=== PATIENT | female | born 1950 | race Caucasian/White ===

== ENCOUNTER 2022-10-18 17:59 | Inpatient (IN) | payer MEDICARE, BC ==
[~2022-10-18] VITALS: Ht 165.1 cm; Wt 98.9 kg
--- NOTE | 2022-10-18 19:54 | NUR ---
PT TO ROOM 4
[2022-10-18] MEDS ORDERED: PANTOPRAZOLE 40 MG VIAL ONE (20:18)
[2022-10-18] MEDS ORDERED: PANTOPRAZOLE 40 MG VIAL IV ONE (20:30)
--- NOTE | 2022-10-18 20:39 | NUR ---
F/C 16 URINE COLLECTED AND SENT TO LAB. LARGE BM NOTED PT KEPT CLEAN AND DRY
--- NOTE | 2022-10-18 20:40 | NUR ---
COVID ANTIGEN SWAB COLLECTED AND SENT TO LAB
[2022-10-18 20:45] LABS: BASOPHILS # (AUTO) 0.1 K/uL (0.0-0.2); BASOPHILS % (AUTO) 0.5 % (0.0-2.0); EOSINOPHILS % (AUTO) 1.6 % (0.0-6.0); HEMATOCRIT 21 % (33-45); HEMOGLOBIN 7.1 g/dL (11.5-14.8); LYMPHOCYTES # (AUTO) 1.1 K/uL (0.8-4.8); LYMPHOCYTES % (AUTO) 10.8 % (20.0-44.0); MEAN CORPUSCULAR HGB CONC 34 g/dl (31.0-36.0); MEAN CORPUSCULAR VOLUME 104 fL (82-100); MONOCYTES # (AUTO) 0.8 K/uL (0.1-1.30); MONOCYTES % (AUTO) 7.9 % (2.0-12.0); NEUTROPHILS # (AUTO) 7.8 K/uL (1.8-8.9); NEUTROPHILS % (AUTO) 79.2 % (43.0-81.0); PLATELET COUNT (AUTO) 186 K/uL (150-450); RED BLOOD CELL COUNT(AUTO) 2.02 MIL/uL (4.0-5.2); WHITE BLOOD COUNT (AUTO) 9.8 K/uL (4.3-11.0)
--- NOTE | 2022-10-18 20:48 | NUR ---
LAC #20G S/L BLOOD COLLECTED AND SENT TO LAB
[2022-10-18 21:01] LABS: SERUM AMMONIA 110 umol/L (11-32)
[2022-10-18 21:06] LABS: ACETAMINOPHEN < 10 ug/ml (10-30); ALANINE AMINOTRANSFERASE 43 U/L (12-78); ALBUMIN 2.6 g/dL (3.4-5.0); ALKALINE PHOSPHATASE 110 U/L (46-116); ASPARTATE AMINOTRANSFERASE 64 U/L (15-37); BILIRUBIN,DIRECT 0.6 mg/dL (0.0-0.2); BILIRUBIN,TOTAL 1.1 mg/dL (0.2-1.0); CARBON DIOXIDE 21 mmol/L (21-32); CHLORIDE 111 mmol/L (98-107); CREATININE 2.6 mg/dL (0.6-1.3); GLUCOSE 137 mg/dL (74-106); LIPASE 88 U/L (73-393); POTASSIUM 3.2 mmol/L (3.5-5.1); SODIUM SERUM 144 mmol/L (136-145); TOTAL PROTEIN, SERUM 5.6 g/dL (6.4-8.2); UREA NITROGEN, BLOOD 57 mg/dL (7-18)
[2022-10-18 21:08] LABS: ALCOHOL, BLOOD < 3 mg/dL (0-0)
[2022-10-18 21:13] LABS: THYROID STIMULATING HORMONE 24.932 uIU/mL (0.358-3.74)
[2022-10-18] MEDS ORDERED: IV NS 0.9% 1,000 ML BAG IV ONE (21:30)
[2022-10-18] MEDS ORDERED: LEVOTHYROXINE INJ 100 MCG VIAL IV SCH (21:30)
[2022-10-18] MEDS ORDERED: IV PREMIX D5 1/2NS + KCL 1,000 ML IV ONE ×2 (21:30→22:09)
[2022-10-18 21:41] LABS: BILIRUBIN,URINE 1+ (NEGATIVE); COLOR,URINE YELLOW (YELLOW); LEUKOCYTE ESTERASE ,URINE 3+ (NEGATIVE); NITRITE, URINE NEGATIVE (NEGATIVE); PROTEIN,URINE TRACE mg/dl (NEGATIVE); UGLUCOSE NEGATIVE (NEGATIVE)
[2022-10-18 22:15] LABS: BACTERIA,URINE Many /HPF (None Seen); SQUAMOUS EPITHELIAL CELL,UR Few /HPF (None Seen)
[2022-10-18 22:16] LABS: WBC,URINE 21-50 /HPF (0-3)
[2022-10-18] MEDS ORDERED: CEFTRIAXONE 1GM BAG (ER ONLY) 1 GM/50 ML PIGGYBACK IV ONE (23:00)
[2022-10-18] MEDS ORDERED: CEFTRIAXONE 1GM BAG (ER ONLY) 50 ML IV ONE (23:03)
[2022-10-18 23:32] LABS: ABG BASE EXCESS -4.1 mmol/L; ABG PH 7.528 (7.350-7.450); ABG PO2 105.4 mmHg (75.0-100.0); COHb 0.2 % (0.5-1.5); MetHb 0.2 % (0.0-1.5); O2Hb 96.8 % (94.0-97.0); SITE, ABG Left Radial; VENT MODE, BG ROOM AIR
[2022-10-19] MEDS ORDERED: DEXTROSE 50%-WATER 50 ML DISP.SYRIN IV PRN
[2022-10-19] MEDS ORDERED: MAG HYDROX/AL HYDROX/SIMETH 30 ML UDC PO PRN
[2022-10-19] MEDS ORDERED: ONDANSETRON HCL/PF 4 MG/2 ML VIAL IVP PRN
[2022-10-19] MEDS ORDERED: ACETAMINOPHEN 325 MG TABLET PO PRN
[2022-10-19] MEDS ORDERED: Z GUARD REMEDY 4 OZ OINT TP PRN
[2022-10-19] MEDS ORDERED: MAGNESIUM HYDROXIDE 30 ML UDC PO PRN
[2022-10-19 00:30] VITALS: BP 151/40
--- NOTE | 2022-10-19 00:30 | NUR ---
NOC RN NOTE PATIENT HAS NO NEXT OF KIN. UNABLE TO FIND OUT WHERE PATIENT CAME FROM. EVEN CALLED THE PHONE #IN THE CHART BUT IT WAS GOING THROUGH PATIENT'S OWN VOICEMAIL AND PATIENT IS UNABLE TO ANSWER QUESTIONS. PUT FULL CODE FOR NOW.
--- NOTE | 2022-10-19 01:29 | NUR ---
PT TRANSFERRED TO [facility] VIA ACLS PROTOCOL WITH THE DX OF ACUTE METABOLIC ENCEPHALOPATHY.
--- NOTE | 2022-10-19 01:40 | NUR ---
noc rn note- non-admin Patient, upon admission to the unit having Black tarry stool and multiple bruises. Talked to Dr. Darby on the phone and per doctor hold Lovenox for now. no other new order. will monitor.
--- NOTE | 2022-10-19 02:10 | NUR ---
ADMISSION NOTE PATIENT BROUGHT IN UNIT AT AROUND 0020, ACCOMPANIED BY 2 ER PERSONNEL VIA Integen[employer]. PATIENT NON-VERBAL AND UNABLE TO COMPREHEND. NO S/S OF APPARENT DISTRESS IN ROOM AIR. PATIENT NOT EXHIBITING PAIN VIA FLACC. READING SR WITH 85 BPM. PATIENT HAS MULTIPLE SKIN TEARS AND BRUISES. NEW ID BAND ON PATIENT. LUNA CATHETER WAS PRESENT UPON ADMISSION DRAINING WELL TO GRAVITY. PATIENT NOTED TO HAVE BLACK TARRY STOOL-- MD NOTIFIED. BELONGINGS CHECKED-- PATIENT HAS LEFT EAR HEARING AIR. SAFETY PUT IN PLACE. UNABLE TO OBTAIN HISTORY FROM PATIENT. NO NEXT OF KIN PROVIDED AND THE # PROVIDED ON CHART IS PATIENT'S OWN PHONE #. TRIED CALLING, NO ANSWER. RIGHT NOW PATIENT IS ON IV PREMIX D5 1/2 NS WITH KCL 20MEQ RUNNING 200MLS/HR. ALL NEEDS ATTENDED. ADMISSION V/S TAKEN AND CHARTED. WILL CONTINUE WITH PLAN OF CARE FOR PATIENT AND FOLLOW THROUGH DOCTOR'S ORDERS.
--- NOTE | 2022-10-19 04:01 | NUR ---
noc rn note Fecal occult blood obtained awaiting lab pick-up.
[2022-10-19] MEDS: IV 1/2NS 1000 ML 1,000 ML IV PRN (04:51)
[2022-10-19] MEDS: BLOOD SUGAR DIAGNOSTIC 1 EACH STRIP IN SCH ×4 (07:03→21:20)
[2022-10-19] MEDS: INSULIN REGULAR, HUMAN 100 UNIT/ML 3 ML VIAL SQ PRN ×2 (07:04→14:12)
[2022-10-19 07:07] LABS: OCCULT BLOOD STOOL POSITIVE (NEGATIVE)
[2022-10-19 07:12] LABS: BASOPHILS # (AUTO) 0.1 K/uL (0.0-0.2); BASOPHILS % (AUTO) 0.4 % (0.0-2.0); EOSINOPHILS % (AUTO) 1.1 % (0.0-6.0); LYMPHOCYTES # (AUTO) 1.3 K/uL (0.8-4.8); LYMPHOCYTES % (AUTO) 10.7 % (20.0-44.0); MEAN CORPUSCULAR HGB CONC 32 g/dl (31.0-36.0); MEAN CORPUSCULAR VOLUME 105 fL (82-100); MONOCYTES # (AUTO) 1.3 K/uL (0.1-1.30); MONOCYTES % (AUTO) 11.2 % (2.0-12.0); NEUTROPHILS % (AUTO) 76.6 % (43.0-81.0); PLATELET COUNT (AUTO) 196 K/uL (150-450); WHITE BLOOD COUNT (AUTO) 11.8 K/uL (4.3-11.0)
[2022-10-19 07:22] LABS: ALANINE AMINOTRANSFERASE 39 U/L (12-78); ALBUMIN 2.5 g/dL (3.4-5.0); ALKALINE PHOSPHATASE 109 U/L (46-116); ASPARTATE AMINOTRANSFERASE 62 U/L (15-37); BILIRUBIN,TOTAL 0.9 mg/dL (0.2-1.0); CALCIUM, SERUM 8.6 mg/dL (8.5-10.1); CARBON DIOXIDE 17 mmol/L (21-32); CHLORIDE 113 mmol/L (98-107); CREATININE 2.8 mg/dL (0.6-1.3); GLUCOSE 142 mg/dL (74-106); MAGNESIUM 2.1 mg/dL (1.8-2.4); PHOSPHORUS 1.7 mg/dL (2.5-4.9); POTASSIUM 3.1 mmol/L (3.5-5.1); SODIUM SERUM 144 mmol/L (136-145); TOTAL PROTEIN, SERUM 5.4 g/dL (6.4-8.2); UREA NITROGEN, BLOOD 56 mg/dL (7-18)
[2022-10-19 07:25] LABS: HEMATOCRIT 20 % (33-45); RED BLOOD CELL COUNT(AUTO) 1.88 MIL/uL (4.0-5.2)
[2022-10-19 07:28] LABS: HEMOGLOBIN 6.4 g/dL (11.5-14.8)
--- NOTE | 2022-10-19 07:31 | NUR ---
NOC RN CLOSING NOTE NEEDS ATTENDED. REPORT GIVEN TO OPAL FOR CONTINUITY OF CARE.
[2022-10-19 07:43] LABS: IRON, SERUM 85 ug/dl (50-175); TOTAL IRON BINDING CAPACITY 192 ug/dl (250-450)
--- NOTE | 2022-10-19 07:46 | NUR ---
HEALTH AND SAFETY COORDINATOR OPENING NOTE PATIENT RECEIVED IN BED ASLEEP. ON TELE MONITOR. ON ROOM AIR, BREATHING EVEN AND UNLABORED, WITH NO S/S OF RESPIRATORY DISTRESS OR SOB. IV ACCESS LAC 20G, PATENT AND INTACT. SAFETY PRECAUTIONS IN PLACE, WITH BED IN LOWEST AND LOCKED POSITION, HEAD OF BED ELEVATED, BED RAILS UP X3, AND CALL LIGHT AND BEDSIDE TABLE WITHIN REACH. WILL CONTINUE TO MONITOR.
--- NOTE | 2022-10-19 07:54 | NUR ---
CRITICAL LAB HGB 6.4. PER DERDERIAN ORDER WILL ADMINISTER 1 UNIT PRBC.
[2022-10-19] MEDS: LEVOTHYROXINE INJ 100 MCG VIAL IV SCH (09:36)
[2022-10-19 10:30] VITALS: BP 146/71
[2022-10-19 11:00] VITALS: BP 152/60
[2022-10-19 11:30] VITALS: BP 143/60
--- NOTE | 2022-10-19 12:11 | NUR ---
: Neo Dwyer tel: [phone] and pt. has caregiver:
--- NOTE | 2022-10-19 12:15 | NUR ---
SS consult: SS Consult requested for safe discharge planning. The pt. is 72-year-old female admitted to [facility] for ALOC. NICOLAS met with pt. at bedside. The pt. is altered, NON-VERBAL and did not make eye contact. The pt. appears well-groomed. The pt. has normal mood & flat affect. The pt.s was at bedside and provided collateral information. Per , Neo Dwyer tel: [phone] pt. resides at home [[id number] [id number]] with him and pt. has A caregiver, Stacy that cares for pt. 8 HRS. daily Per pt does not use drugs or ETOH. Pt. Denies any mental health diagnosis. NICOLAS provided pt. with senior resources including for transportation, meal delivery, DME, insurance assistance etc. Pt. was receptive and stated she will use resources as needed. Per pt. she is ambulatory and independent with all her ADLs. Per pt. she receives SSI. Per patient needs assistance with ADls and uses a walker and wheelchair to get around.Per , pt. has been in and out of hospitals recently and at different SNF's. Per CM, possible SNF placement. DC Plan: Per he is agreeable for SNF placement, CM will work on it. If not pt. may return home [[id number] [facility] [address]] WITH . NICOLAS provided pt. with the follow senior resources and pt. accepted them: ABUSE PREVENTION: ELDER ABUSE HOTLINE (16/01) ADULT PROTECTIVE SERVICES HOTLINE LONG-TERM CARE [facility] Region AREA ON AGING (HOTLINE) ADULT DAY HEALTH CARE CARE CENTERS: Private pay or Medi-meliton funded adult day care [place] [facility] , [facility] , [facility] , [facility] Adult [facility] Care , [facility] Adult [facility] Health Care , [facility] Adult Daycare Center , [place] [facility] , [place] [facility] Adult Center , [place] ALZHEIMERS DISEASE/DEMENTIA: Alzheimers Association Helpline [facility] Chapter www.alz.org/[facility] Department of Aging www.lacity.org Family Caregiver [place] www.caregiver.org [place] Caregiver Resources Center/Family Support www.[facility].org CANCER RESOURCES: British Cancer Society www.cancer.org Cancer Support Community www.CancerSupportVvsb.org: CancerCare www.cancercare.org [facility] Cancer Support [place] www.[facility] - cheyenne.org [facility] HEALTH ASSOCIATIONS: AARP www.aarp.org ALS Association (ask for Sonal) www.als.org British Diabetes Association www.diabetes.org British Heart Association www.heart.org British Lung Association www.lungusa.org British Parkinson Disease Association www.apdaparkinson.org British Switzer , www.redcross.org Arthritis Foundation www.arthritis.org Crohns & Colitis Foundation of British www.ccfa.org/chapters/malcom National Multiple Sclerosis Society www.nationalmssociety.org Myasthenia Gravis Foundation www.myasthenia-ca.org National Stroke Association www.stroke.org CONSERVATORSHIP & GUARDIANSHIP: AARP Scar[facility] Legal Services Center for Health Care Rights [place] Information and Referral Assistant Administrator Foundation [facility]: [facility] Bar Referral Service [facility] Legal Services Office of the Public Guardian Maysel EYESIGHT DISORDER RESOURCES: British Macular Degeneration Foundation [facility] www.[facility].org GRIEF AND BEREAVEMENT RESOURCES: [facility] [place] [facility] , [facility] THE HOPE Connection , [facility] , [place] HEARING DISORDER RESOURCES: [place] Telephone Access Program Deaf and Disabled Telecommunications Program www.ddtp.[facility].ca.gov HearRx Hearing Centers ([place]) Better Hearing Systems , [place] GLAD ([facility] Agency on Deafness) V/ TTY; Director Of Development And Marketing , [facility] Hearing [facility] -low income hearing aid assistance www.joe dimaggio children's hospitalfoundation.org [place] Hearing Care , David HELP AT HOME CAREGIVER SUPPORT: In Home Support Services (Must have Medi-Meliton to be eligible) *Ask for a list of agencies that provide services to assist with care in the home. Local Senior Centers also have listings of care providers. HOME SAFETY MODIFICATIONS AND EQUIPMENT: Senior centers have additional referrals. [place] Housing and Community Investment Dept. Handyworker Program (low income) or Visit http://hcidla.uk healthcare.org/ftd-tcwnls-ay for more information National Seating and Mobility and/or ; Forever Active www.foreveractivemed.Rotation Medical Stay Home Safe www.Stayhomesafe.Rotation Medical LIFE ALERT RESPONSE SYSTEM: Society of Cable Telecommunications Engineers (SCTE)line Services 539-643-8712 www. Education Development Center (EDC) Life Alert 296-588-7867 www.Community Veterinary Partners Life Station 368-851-2418 www.dentalDoctorsation.Rotation Medical Safe Return 513-086-3852 www.alz.or/safereturn Cell Phones for Seniors www.Ingk Labs MEALS AND FOOD PROGRAMS: [place] Meals on Wheels [phone] [place] Meals on Wheels [phone] [facility] [phone] [place] to the Homebound [phone] [place] to the Homebound [phone] [facility] to the Homebound [phone] [facility] to the Homebound [phone] [facility] [phone] May[facility] [phone] ONE Generation [phone] [facility] [phone] [facility] [phone] Meals on Wheels [phone] For all ages: $6.85/ meal w side. Delivered M-F from 10 am-1pm. Application and payment is done over the phone. Frozen meals available for weekends. Emergency Food Coalition [phone] [facility] Drill Rig Operator Helper [phone] [facility] [phone] [facility]- Brown bag lunches [phone] [facility] [phone] MEAL/GROCERY DELIVERY PROGRAMS: [facility] Gourmet Meals [phone]- [facility] [phone]- [facility] Magic Kitchen [phone] Moms Meals [phone] (ask Desir for Discount Select grocery stores may provide delivery. MEDICAL INSURANCE SUPPORT SERVICES: Center for Health Care Rights [phone] Health Insurance Counseling/Advocacy Programs (HICAP)-Must have Medicare. Offers counseling for Medi-Meliton eligibility [phone] Department of Public Drill Rig Operator Helper [phone] www.[facility].ca.gov Medicare [phone] www.socialsecurity.org Social Security [phone] SENIOR ACTIVITY PROGRAMS: *Contact a local senior center, adult school, recreation facility or [facility] for education, fitness, recreation, and social programs. Aquatic Therapy and Adapted Exercise programs through [facility] [phone] [facility] [phone] www.[facility]/encore U- Senior Friends 187-042-9827 [place] Senior Programs [phone] www.oasisnet.org Suddenly 65 www.Network Game Interaction.Rotation Medical SENIOR CENTERS: [facility] [phone] [facility] [phone] [facility] [phone] [facility] [phone] [facility] [phone] [facility] [phone] [facility] [phone] [facility] [phone] One Generation, [facility] [phone] [facility] [phone] [facility] [phone] [facility] [phone] [facility] [phone] TRANSPORTATION: Local [facility] Centers may have applications for transportation programs and additional resources. ACCESS Services [phone] Transportation for seniors and disabled persons 7 days a week requiring 254 hr. advance reservation. Must apply and register for program robin eligible. CITY RIDE [phone] or [phone] Transportation for seniors and persons with ADA card/metro disabled card in the [facility]. M-F only. Must register for services. ONE GENERATION [phone] Serves 65 years + in conjunction with [employer] ride program. Must be registered with both programs. A to B Transport [phone] Provides wheelchair/gurney van service. Adult Medical Transport [phone] Accepts [facility] with prior authorization. Care Van [phone] Provides wheelchair Transport. [facility] Wide Transportation [phone] Provides gurney service Gentle Care [phone] Gurney Transport. All Town Transportation [phone] wheelchair & gurney transport D Transportation [phone] wheelchair & gurney transport [place] Non-Emergency Transport [phone] wheelchair & gurney transport [facility] Living [place] [phone] Short Term Transportation primarily for adults with disabilities on social security income. Nominal fee may apply and a reservation is required. City Cab [phone] or [phone] MOVL [facility] [phone] [place] [address] Referral Services -[phone] For additional programs & services VETERANS RESOURCES: Submissions for Aid and Attendance should be done directly to Federal VA office locatd at : [address] [address] X110 National Caregiver Support Line [phone] Mel[facility] Vill[facility] Field Office [phone] [place] Department of Affairs [phone] Pension Information [phone]
[2022-10-19 12:30] VITALS: BP 152/59
[2022-10-19 13:30] VITALS: BP 127/47
[2022-10-19] MEDS: POTASSIUM CL. PREMIX PERIPHER. 50 ML IV SCH ×4 (14:58→19:55)
[2022-10-19 15:05] LABS: BAND % (MANUAL) 3 % (0.0-5.0); LYMPHOCYTES % (MANUAL) 11 % (16-48); MONOCYTES % (MANUAL) 7 % (0-11.0); NEUTROPHILS % (MANUAL) 79 (42-76)
[2022-10-19 16:08] LABS: HEMOGLOBIN 7.6 g/dL (11.5-14.8)
--- NOTE | 2022-10-19 19:00 | NUR ---
WORK TICKET DISTRIBUTOR CLOSING NOTE PATIENT BED ASLEEP. RESPONDS TO PAINFUL STIMULI. ON TELE MONITOR. ON ROOM AIR, BREATHING EVEN AND UNLABORED, WITH NO S/S OF RESPIRATORY DISTRESS OR SOB. IV ACCESS LAC 20G, PATENT AND INTACT. SAFETY PRECAUTIONS IN PLACE, WITH BED IN LOWEST AND LOCKED POSITION, HEAD OF BED ELEVATED, BED RAILS UP X3, AND CALL LIGHT AND BEDSIDE TABLE WITHIN REACH. WILL ENDORSE TO ONCOMING SHIFT FOR SHAMAR.
--- NOTE | 2022-10-19 19:30 | NUR ---
CHILD DEVELOPMENT INSTRUCTOR OPENING NOTE RECEIVED PATIENT IN BED, WITH HOB ELEVATED, WITH EYES CLOSED, OBTUNDED. AFEBRILE AND NOT IN ANY FORM OF ACUTE DISTRESS. BREATHING EVEN AND NON LABORED. ON TELE MONITORING WITH CURRENT READING OF SR 92. S/P BLOOD TRANSFUSION, MONITORED FOR ANY ADVERSE REACTION. WITH INTACT LUNA CATHETER, DRAINING WELL WITH YELLOW URINE OUTPUT, NO HEMATURIA OR SEDIMENTS NOTED. SAFETY MEASURES IN PLACE. KEPT BED IN LOCKED AND IN LOW POSITION. SIDE RAILS UP X2. CALL LIGHT WITHIN EASY REACH.
--- NOTE | 2022-10-19 20:15 | NUR ---
RN VISITING NOTES PATIENT HAS SCHEDULED LOVENOX AT [address] PATIENT JUST HAD BLOOD TRANSFUSION TODAY AND LATEST HGB LEVEL IS 7.6. PER REPORT, SHE ALSO HAD TARRY STOOL LAST NIGHT. NOTIFIED MD/ARCHITECT IN TRAINING HAND WOVEN CARPET AND RUG [facility] AND ORDERED TO HOLD IT FOR NOW. ORDER NOTED AND CARRIED OUT.
[2022-10-19] MEDS: ENOXAPARIN SODIUM 30 MG/0.3 ML DISP.SYRIN SQ SCH ×2 (21:00)
--- NOTE | 2022-10-19 21:00 | NUR ---
SALES OPERATIONS ASSOCIATE NOTE RECEIVED A CALL FROM PHARMACY AND SAID THAT PHOSPHORUS WAS 1.7 AND WAS NOT REPLACED SINCE THE MORNING. NOTIFIED DYE AND CHEMICAL COORDINATOR [facility] AND ADVISED TO INFORM THE NEPHROLOGY IN AM. TRIED TO CALL BACK PHARMACY BUT UNABLE TO GET HOLD. WILL ENDORSED TO INCOMING SHIFT FOR F/U.
[2022-10-19] MEDS: CEFTRIAXONE 1 G in IV D5W 50 ML IV SCH (22:17)
[2022-10-20] MEDS: IV 1/2NS 1000 ML 1,000 ML IV PRN (03:59)
--- NOTE | 2022-10-20 06:30 | NUR ---
FLOOR COVERING PRINTER ASSISTANT CLOSING NOTE PATIENT IN BED, WITH HOB ELEVATED, ASLEEP BUT RESPONDS TO TACTILE STIMULI. AFEBRILE AND NOT IN ANY FORM OF ACUTE DISTRESS. BREATHING EVEN AND NON LABORED. ON TELE MONITORING WITH CURRENT READING OF SR 84. S/P BLOOD TRANSFUSION, MONITORED FOR ANY ADVERSE REACTION. WITH INTACT LUNA CATHETER, DRAINING WELL WITH YELLOW URINE OUTPUT, NO HEMATURIA OR SEDIMENTS NOTED. MAINTAINED ON NPO ORDERED. MONITORED FOR ANY S/SX. OF HYPO/HYPERGLYCEMIA. MEDICATED ORDERED. CONTINUOUS ON IV ATB, MONITORED FOR ANY ADVERSE REACTION. SAFETY MEASURES IN PLACE. KEPT BED IN LOCKED AND IN LOW POSITION. SIDE RAILS UP X2. CALL LIGHT WITHIN EASY REACH. ALL NURSING NEEDS ATTENDED. ENDORSED TO INCOMING SHIFT FOR CONTINUITY OF CARE.
[2022-10-20] MEDS: BLOOD SUGAR DIAGNOSTIC 1 EACH STRIP IN SCH ×4 (06:45→22:18)
--- NOTE | 2022-10-20 07:15 | NUR ---
LINE PALLETIZER OPEN NOTE: OBTUNDED. ON ROOM AIR SATING 100%. PALE. MOIST ORAL MUCOSA. LEFT AC 20G WITH 1/2 NS 75 ML/HR. WELDER TECH WITH SINUS RHYTHM 77. LUNA CATHETER WITH YELLOW URINE. HOB ELEVATED. BILATERAL HALF SIDE RAILS UP X2. BED IN LOW POSITION, LOCKED, EXIT ALARM ON. CALL LIGHT IN REACH.
[2022-10-20 08:00] VITALS: BP 137/56
[2022-10-20] MEDS: LEVOTHYROXINE INJ 100 MCG VIAL IV SCH (09:45)
[2022-10-20 10:32] LABS: ALANINE AMINOTRANSFERASE 40 U/L (12-78); ALBUMIN 2.3 g/dL (3.4-5.0); ALKALINE PHOSPHATASE 97 U/L (46-116); ASPARTATE AMINOTRANSFERASE 86 U/L (15-37); BILIRUBIN,DIRECT 0.3 mg/dL (0.0-0.2); BILIRUBIN,TOTAL 0.8 mg/dL (0.2-1.0); CALCIUM, SERUM 8.4 mg/dL (8.5-10.1); CARBON DIOXIDE 17 mmol/L (21-32); CHLORIDE 115 mmol/L (98-107); CREATININE 2.5 mg/dL (0.6-1.3); GLUCOSE 139 mg/dL (74-106); MAGNESIUM 2.1 mg/dL (1.8-2.4); POTASSIUM 3.1 mmol/L (3.5-5.1); SODIUM SERUM 145 mmol/L (136-145); TOTAL PROTEIN, SERUM 5.3 g/dL (6.4-8.2); UREA NITROGEN, BLOOD 48 mg/dL (7-18)
[2022-10-20 11:29] LABS: BASOPHILS # (AUTO) 0.1 K/uL (0.0-0.2); BASOPHILS % (AUTO) 0.7 % (0.0-2.0); EOSINOPHILS % (AUTO) 2.2 % (0.0-6.0); HEMATOCRIT 24 % (33-45); HEMOGLOBIN 7.4 g/dL (11.5-14.8); LYMPHOCYTES # (AUTO) 1.1 K/uL (0.8-4.8); LYMPHOCYTES % (AUTO) 11.3 % (20.0-44.0); MEAN CORPUSCULAR HGB CONC 32 g/dl (31.0-36.0); MEAN CORPUSCULAR VOLUME 106 fL (82-100); MONOCYTES # (AUTO) 1.1 K/uL (0.1-1.30); MONOCYTES % (AUTO) 11.3 % (2.0-12.0); NEUTROPHILS % (AUTO) 74.5 % (43.0-81.0); PLATELET COUNT (AUTO) 94 K/uL (150-450); RED BLOOD CELL COUNT(AUTO) 2.22 MIL/uL (4.0-5.2); WHITE BLOOD COUNT (AUTO) 9.4 K/uL (4.3-11.0)
[2022-10-20 12:00] VITALS: BP 144/49
--- NOTE | 2022-10-20 12:20 | NUR ---
PATIENT WENT FOR ESOPHAGOGASTRODUODENOSCOPY PROCEDURE, WITNESSED PHONE CONSENT FROM SPOUSE FABRICIO YAN SPOUSE. ALSO SPOUSE GAVE NUMBER OF HEATING AND VENTILATING WORKER OF DR. KATHRYN LITTLE [phone] TO INFORMED HIM OF PATIENT IS HAVING THE PROCEDURE, PER DOCTOR ANABEL PATIENT IS OK TO HAVE PROCEDURE.
[2022-10-20] MEDS ORDERED: VIT1TABL46 PO (12:42)
[2022-10-20] MEDS ORDERED: LEVO175T7 PO (12:42)
[2022-10-20] MEDS ORDERED: PANT40TA49 PO (12:42)
[2022-10-20] MEDS ORDERED: LINA5TAB PO (12:42)
[2022-10-20] MEDS ORDERED: ALLO100T PO (12:42)
[2022-10-20] MEDS ORDERED: SENN-261 PO (12:42)
[2022-10-20] MEDS ORDERED: MIDO5TAB4 PO (12:42)
[2022-10-20 14:20] VITALS: BP 135/48
--- NOTE | 2022-10-20 14:24 | NUR ---
PATIENT RETURNED FROM PROCEDURE. OBTUNDED. LEFT UPPER ARM AC G20 WITH 1/2 NS 75 ML/HR. CONTINUES NPO. CARIDAC MONITOR SINUS RHYTHM 68. LUNA CATHETER WITH YELLOW URINE. HOB ELEVATED. ROOM AIR SATING 98%. BILATERAL HALF SIDE RAILS UP X2. BED EXIT ALARM ON. BED IN LOW POSITION, LOCKED. EXIT ALARM ON. CALL LIGHT IN REACH.
[2022-10-20] MEDS: VANCOMYCIN 1 GM in IV D5W 250ml IV SCH (14:35)
[2022-10-20] MEDS: LACTULOSE 10 G/15 ML UDC (PYXIS) PO SCH ×2 (15:52→22:00)
[2022-10-20] MEDS ORDERED: Sodium Phosphate 15 MMOL in IV NS 0.9% 245 ML IV ONE (16:00)
[2022-10-20] MEDS: INSULIN REGULAR, HUMAN 100 UNIT/ML 3 ML VIAL SQ PRN ×2 (17:22→22:18)
--- NOTE | 2022-10-20 18:46 | NUR ---
EYE DROPPER ASSEMBLER CLOSING NOTE: ALER TO NAME. VERBALLY RESPONSIVE TO VERBAL STIMULI. SMILING. VISITED BY FRIENDS. TALKING TO THEM. ON ROOM AIR SATING 98%. PALE. MOIST ORAL MUCOSA. LEFT AC 20G WITH 1/2 NS 75 ML/HR, AND SODIUM PHOSPHATE AT 63.33 ML/HR. BUS AND TROLLEY DISPATCHER WITH SINUS RHYTHM 89. LUNA CATHETER WITH YELLOW URINE. HOB ELEVATED. BILATERAL HALF SIDE RAILS UP X2. BED IN LOW POSITION, LOCKED, EXIT ALARM ON. CALL LIGHT IN REACH. KEPT CLEAN AND DRY. TURNED AND REPOSITIONED. DENIES PAIN OR DISCOMFORT.
--- NOTE | 2022-10-20 19:30 | NUR ---
RECYCLING MANAGER OPENING NOTE RECEIVED PT RESTING IN BED, EASILY AROUSABLE. A/O X0, ALERT TO NAME ONLY. VERBALLY RESPONSIVE. ON RA, HOB ELEVATED, WITH NO S/S OF SOB OR DISTRESS. IV ACCESS LAC #20G INTACT, PATENT, FLUSHING WELL, RUNNING 0.45% NS @ 75 ML/HR. COMMERCIAL LENDING ASSISTANT WITH SINUS RHYTHM 70. LUNA CATHETER INTACT, WITH CLEAR YELLOW URINE. SAFETY PRECAUTIONS IN PLACE: BED LOCKED AND IN LOW POSITION, BED ALARM ON, SIDE RAILS UP X3, CALL LIGHT AND TRAY TABLE WITHIN [facility]. WILL CONTINUE TO MONITOR AND ASSIST.
[2022-10-20 20:00] VITALS: BP 121/47
[2022-10-20 21:46] LABS: BAND % (MANUAL) 1 % (0.0-5.0); EOSINOPHILS % (MANUAL) 2 % (0-4); LYMPHOCYTES % (MANUAL) 10 % (16-48); MONOCYTES % (MANUAL) 5 % (0-11.0); NEUTROPHILS % (MANUAL) 82 (42-76)
[2022-10-20] MEDS: CEFTRIAXONE 1 G in IV D5W 50 ML IV SCH (22:36)
[2022-10-21] VITALS: BP 123/51
[2022-10-21] MEDS: IV 1/2NS 1000 ML 1,000 ML IV PRN (01:17)
[2022-10-21] MEDS: LACTULOSE 10 G/15 ML UDC (PYXIS) PO SCH ×4 (03:00→21:36)
[2022-10-21 04:00] VITALS: BP 129/47
--- NOTE | 2022-10-21 07:00 | NUR ---
MANAGER FINANCIAL SYSTEMS CLOSING NOTE PT SLEEPING IN BED, EASILY AROUSABLE. A/O X0, ALERT TO NAME ONLY. VERBALLY RESPONSIVE. STABLE ON RA, HOB ELEVATED, WITH NO S/S OF SOB OR DISTRESS. IV ACCESS LAC #20G INTACT, PATENT, FLUSHING WELL, RUNNING 0.45% NS @ 75 ML/HR. PRODUCT ARCHITECT WITH SINUS RHYTHM 66. LUNA CATHETER INTACT, WITH CLEAR YELLOW URINE. ALL CARE PROVIDED AND MEDS TOLERATED WELL. SAFETY PRECAUTIONS MAINTAINED: BED LOCKED AND IN LOW POSITION, BED ALARM ON, SIDE RAILS UP X3, CALL LIGHT AND TRAY TABLE WITHIN [facility]. WILL ENDORSE SHAMAR TO DAY SHIFT NURSE.
[2022-10-21 08:00] VITALS: BP 124/78
[2022-10-21] MEDS ORDERED: LACTULOSE UDC 200 G in SODIUM CHLORIDE IRRIG SOLUTION 400 ML IR SCH (08:00)
[2022-10-21] MEDS: BLOOD SUGAR DIAGNOSTIC 1 EACH STRIP IN SCH ×4 (08:07→21:36)
[2022-10-21] MEDS: LEVOTHYROXINE INJ 100 MCG VIAL IV SCH (09:18)
--- NOTE | 2022-10-21 10:12 | NUR ---
BLOOD GLUCOSE CHECKED THIS 0730 AM, -36, RECHECKED BS-43, D5O GIVEN, CHECKED AFTER 15 MINS- 130, INFORMED DR HAMILTON, DID SWALLOWING TEST WITH APPLE SAUCE, PATIENT ABLE TO SWALLOW SLOWLY WITH NO ISSUES, MD ORDERED LACTULOSE 20G PO, STOP IV LACTULOSE. SPEECH THERAPY CAME AND DID SWALLOW EVALUATION, PATIENT PASSED, ORDERED PUREE DIET WITH THIN LIQUID.
[2022-10-21 12:00] VITALS: BP 136/70
[2022-10-21 12:11] LABS: BASOPHILS # (AUTO) 0.1 K/uL (0.0-0.2); BASOPHILS % (AUTO) 0.7 % (0.0-2.0); EOSINOPHILS % (AUTO) 5.4 % (0.0-6.0); HEMATOCRIT 30 % (33-45); HEMOGLOBIN 8.4 g/dL (11.5-14.8); LYMPHOCYTES # (AUTO) 0.8 K/uL (0.8-4.8); MEAN CORPUSCULAR HGB CONC 28 g/dl (31.0-36.0); MEAN CORPUSCULAR VOLUME 119 fL (82-100); MONOCYTES % (AUTO) 10.1 % (2.0-12.0); NEUTROPHILS # (AUTO) 7.1 K/uL (1.8-8.9); NEUTROPHILS % (AUTO) 74.8 % (43.0-81.0); PLATELET COUNT (AUTO) 113 K/uL (150-450); RED BLOOD CELL COUNT(AUTO) 2.55 MIL/uL (4.0-5.2); WHITE BLOOD COUNT (AUTO) 9.4 K/uL (4.3-11.0)
[2022-10-21 16:00] VITALS: BP 138/45
[2022-10-21] MEDS: INSULIN REGULAR, HUMAN 100 UNIT/ML 3 ML VIAL SQ PRN ×2 (16:45→21:37)
--- NOTE | 2022-10-21 19:10 | NUR ---
CLOSING N Addendum: 10/21/22 at 1914 by GRAND TAMIA ROSENTHAL CLOSING NOTE PATIENT IS RESTING IN BED COMFORTABLY, ASLEEP BUT AROUSABLE, NO SIGNS OF IN DISTRESS, NO COMPLAINT OF PAIN, UNLABORED BREATHING ON ROOM AIR, SAFETY MEASURES ARE IN PLACE, BED IN LOW POSITION LOCKED, SIDE RAILS UPX3, CALL LIGHT WITHIN REACH.
--- NOTE | 2022-10-21 19:30 | NUR ---
PSYCHIATRIC SECURITY NURSE opening note Pt received resting in bed, awake, A&Ox1, verbal, HOB elevated, on RA, breathing even and unlabored, 0 s/s of acute distress, RAC 20 GA intact, 1/2 NS @ 75 ml/hr infusing well, serrano patent draining clear yellow urine, bed at lowest position, fall risk precautions in place, will continue to monitor
[2022-10-21 20:00] VITALS: BP 130/43
[2022-10-21 20:51] LABS: LYMPHOCYTES % (MANUAL) 17 % (16-48); MONOCYTES % (MANUAL) 3 % (0-11.0); NEUTROPHILS % (MANUAL) 80 (42-76)
[2022-10-21] MEDS: CEFTRIAXONE 1 G in IV D5W 50 ML IV SCH (23:22)
[2022-10-21] MEDS: VANCOMYCIN 1 GM in IV D5W 250ml IV SCH (23:23)
--- NOTE | 2022-10-21 23:23 | NUR ---
RN NOTES: DUE IV/ATB OF CEFTRIAXONE AND VANCOMYCIN GIVEN.
[2022-10-22] VITALS: BP 140/57
[2022-10-22] MEDS: LACTULOSE 10 G/15 ML UDC (PYXIS) PO SCH ×2 (03:33→09:27)
[2022-10-22 04:00] VITALS: BP 128/50
[2022-10-22] MEDS: IV 1/2NS 1000 ML 1,000 ML IV PRN ×2 (04:26→17:58)
--- NOTE | 2022-10-22 07:00 | NUR ---
CHIEF ENGINEER'S HELPER closing note Pt resting in bed, awake, A&Ox1, verbal, HOB elevated, on RA, breathing even and unlabored, RAC 20 GA intact, 1/2 NS @ 75 ml/hr infusing well, serrano patent draining clear yellow urine, all due meds given per MD orders, tolerated well, repositioned q2h and prn, all basic needs met and anticipated, all safety measures in place, bed bath and yosef care rendered well, will continue to monitor
--- NOTE | 2022-10-22 07:10 | NUR ---
RACK WASHER OPENING NOTES: Received Pt in bed, awake, A&Ox1, but very confused, HOB elevated, on RA, breathing even and unlabored, no s/s of acute distress, RAC 20 GA intact, 1/2 NS @ 75 ml/hr infusing well, serrano patent draining clear yellow urine, bed at lowest position, fall risk precautions in place, will continue to monitor
[2022-10-22] MEDS: BLOOD SUGAR DIAGNOSTIC 1 EACH STRIP IN SCH ×4 (07:53→21:05)
[2022-10-22] MEDS: LEVOTHYROXINE INJ 100 MCG VIAL IV SCH (07:53)
[2022-10-22 08:00] VITALS: BP 114/44
[2022-10-22 11:27] LABS: CALCIUM, SERUM 8.1 mg/dL (8.5-10.1); CARBON DIOXIDE 18 mmol/L (21-32); CHLORIDE 115 mmol/L (98-107); CREATININE 2.4 mg/dL (0.6-1.3); GLUCOSE 151 mg/dL (74-106); SODIUM SERUM 143 mmol/L (136-145); UREA NITROGEN, BLOOD 34 mg/dL (7-18)
[2022-10-22 11:29] LABS: POTASSIUM 2.8 mmol/L (3.5-5.1)
[2022-10-22 12:00] VITALS: BP 139/54
--- NOTE | 2022-10-22 12:09 | NUR ---
RN NOTES: CALLED DR GONZALES POTASSIUM 2.8 AND PT HAD VERY LARGE BM THIS MORNING WITH ORDER TO STOP LACTULOSE AND GIVE KCL 80 MEQ KCL PO X 1
[2022-10-22] MEDS: INSULIN REGULAR, HUMAN 100 UNIT/ML 3 ML VIAL SQ PRN ×2 (12:27→21:06)
[2022-10-22] MEDS ORDERED: POTASSIUM CHLORIDE 20 MEQ POWDER PACKET PO ONE (12:30)
[2022-10-22 14:59] LABS: CALCIUM, SERUM 7.9 mg/dL (8.5-10.1); CARBON DIOXIDE 18 mmol/L (21-32); CHLORIDE 114 mmol/L (98-107); CREATININE 2.3 mg/dL (0.6-1.3); GLUCOSE 173 mg/dL (74-106); POTASSIUM 3.2 mmol/L (3.5-5.1); SODIUM SERUM 144 mmol/L (136-145); UREA NITROGEN, BLOOD 32 mg/dL (7-18)
[2022-10-22 15:06] LABS: ALANINE AMINOTRANSFERASE 38 U/L (12-78); ALBUMIN 2.2 g/dL (3.4-5.0); ALKALINE PHOSPHATASE 105 U/L (46-116); ASPARTATE AMINOTRANSFERASE 57 U/L (15-37); BILIRUBIN,TOTAL 0.6 mg/dL (0.2-1.0)
[2022-10-22 16:00] VITALS: BP 140/44
--- NOTE | 2022-10-22 18:45 | NUR ---
CLINIC OFFICE MANAGER CLOSING NOTE PT IN BED, EASILY AROUSA. A/O X1, ALERT TO NAME ONLY. VERBALLY RESPONSIVE. STABLE ON RA, HOB ELEVATED, WITH NO S/S OF SOB OR DISTRESS. IV ACCESS LAC #20G INTACT, PATENT, FLUSHING WELL, RUNNING 0.45% NS @ 90 ML/HR. DIRECTOR OF MIDWIFERY/STAFF MIDWIFE WITH SINUS RHYTHM . LUNA CATHETER INTACT, WITH CLEAR YELLOW URINE. ALL DUE MEDS WERE GIVEN ORDERED. KEPT CLEAN AND DRY AT COMFORTABLE AT ALL TIMES.SAFETY PRECAUTIONS MAINTAINED: BED LOCKED AND IN LOW POSITION, BED ALARM ON, SIDE RAILS UP X3, CALL LIGHT AND TRAY TABLE WITHIN REACH. WILL ENDORSE TO INCOMING NURSE FOR SHAMAR.
--- NOTE | 2022-10-22 19:10 | NUR ---
INTERNAL WHOLESALER opening note Pt received resting in bed, awake, A&Ox1, verbal, HOB elevated, on RA, breathing even and unlabored, 0 s/s of acute distress, RAC 20 GA intact, 1/2 NS @ 90 ml/hr infusing well, serrano patent draining clear yellow urine, bed at lowest position, fall risk precautions in place, will continue to monitor
[2022-10-22 20:00] VITALS: BP 109/31
[2022-10-22] MEDS: CEFTRIAXONE 1 G in IV D5W 50 ML IV SCH (23:01)
[2022-10-23] VITALS: BP 111/41
[2022-10-23 04:00] VITALS: BP 106/62
[2022-10-23] MEDS: IV 1/2NS 1000 ML 1,000 ML IV PRN ×2 (06:19→18:10)
--- NOTE | 2022-10-23 07:10 | NUR ---
DANCE HALL HOST/HOSTESS OPENING NOTES: Received Pt in bed, awake, A&Ox1, but very confused, HOB elevated, on RA, breathing even and unlabored, no s/s of acute distress, RAC 20 GA intact, 1/2 NS @ 90 ml/hr infusing well, serrano catheter patent draining clear yellow urine, bed at lowest position, safety measures in place, bed in low and locked position, bed alarm is on, side rails up ,call light within reach , will continue to monitor
[2022-10-23] MEDS: BLOOD SUGAR DIAGNOSTIC 1 EACH STRIP IN SCH ×4 (07:51→21:59)
[2022-10-23] MEDS: LEVOTHYROXINE INJ 100 MCG VIAL IV SCH (07:52)
[2022-10-23 08:00] VITALS: BP 116/53
[2022-10-23 11:32] LABS: CALCIUM, SERUM 7.9 mg/dL (8.5-10.1); CARBON DIOXIDE 15 mmol/L (21-32); CHLORIDE 114 mmol/L (98-107); GLUCOSE 147 mg/dL (74-106); POTASSIUM 3.5 mmol/L (3.5-5.1); SODIUM SERUM 140 mmol/L (136-145); UREA NITROGEN, BLOOD 28 mg/dL (7-18)
[2022-10-23 12:00] VITALS: BP 125/71
[2022-10-23] MEDS: VANCOMYCIN 1.25 GM in IV D5W 250 ML IV SCH (12:52)
[2022-10-23] MEDS ORDERED: SENNOSIDES 8.6 MG TABLET PO PRN (14:30)
[2022-10-23 16:00] VITALS: BP 91/35
--- NOTE | 2022-10-23 17:00 | NUR ---
rn notes: serrano discontinued as ordered by DR Darby, will monitor if pt able to void
[2022-10-23] MEDS: MIDODRINE HCL (5MG) 5 MG TABLET PO SCH (17:23)
[2022-10-23] MEDS: INSULIN REGULAR, HUMAN 100 UNIT/ML 3 ML VIAL SQ PRN ×2 (17:25→22:00)
--- NOTE | 2022-10-23 18:45 | NUR ---
DINING SERVICE WORKER CLOSING NOTE PT IN BED, EASILY AROUSA. A/O X1, ALERT TO NAME ONLY. VERBALLY RESPONSIVE. STABLE ON RA, HOB ELEVATED, WITH NO S/S OF SOB OR DISTRESS. IV ACCESS LAC #20G INTACT, PATENT, FLUSHING WELL, RUNNING 0.45% NS @ 90 ML/HR. METAL PAINTER WITH SINUS RHYTHM . ALL DUE MEDS WERE GIVEN ORDERED. KEPT CLEAN AND DRY AT COMFORTABLE AT ALL TIMES.SAFETY PRECAUTIONS MAINTAINED: BED LOCKED AND IN LOW POSITION, BED ALARM ON, SIDE RAILS UP X3, CALL LIGHT AND TRAY TABLE WITHIN REACH. WILL ENDORSE TO INCOMING NURSE FOR SHAMAR.
[2022-10-23 20:00] VITALS: BP 109/68
[2022-10-23] MEDS: CEFTRIAXONE 1 G in IV D5W 50 ML IV SCH (22:12)
[2022-10-24] VITALS: BP 116/56
[2022-10-24 04:00] VITALS: BP 119/77
[2022-10-24] MEDS: IV 1/2NS 1000 ML 1,000 ML IV PRN ×2 (06:01→22:24)
--- NOTE | 2022-10-24 06:45 | NUR ---
CEMENT STORAGE WORKER closing note Pt resting in bed, awake, A&Ox1, verbal, HOB elevated, on RA, breathing even and unlabored, RAC 20 GA intact, 1/2 NS @ 90 ml/hr infusing well, serrano patent draining clear yellow urine, all due meds given per MD orders, tolerated well, repositioned q2h and prn, all basic needs met and anticipated, all safety measures in place, bed bath and yosef care rendered well, will continue to monitor
--- NOTE | 2022-10-24 07:00 | NUR ---
RN OPENING NOTE RECEIVED PATIENT RESTING IN BED, ALERT AND ORIENTED X2. ON ROOM AIR, BREATHING WELL AND UNEVEN, NO SHORTNESS OF BREATH OR DISCOMFORT NOTED. IV ACCESS ON LAC 20 DORIE, PATENT AND FLUSHING WELL, ON CONTINUOS 1/2 NS @90 CC/HR, INFUSING WELL. SAFETY MEASURES IMPLEMENTED, HEAD OF BED ELEVATED, BED IN LOWEST AND LOCKED POSITION. WILL CONTINUE TO MONITOR.
[2022-10-24] MEDS: INSULIN REGULAR, HUMAN 100 UNIT/ML 3 ML VIAL SQ PRN ×2 (07:52→21:28)
[2022-10-24] MEDS: BLOOD SUGAR DIAGNOSTIC 1 EACH STRIP IN SCH ×4 (07:52→21:26)
[2022-10-24] MEDS: LEVOTHYROXINE SODIUM 175 MCG TABLET PO SCH (07:55)
[2022-10-24] MEDS: PANTOPRAZOLE 40 MG TABLET.DR PO SCH (07:55)
[2022-10-24 08:00] VITALS: BP 96/73
--- NOTE | 2022-10-24 08:27 | NUR ---
RN NOTE DUPLICATE ORDER FOR LEVOTHYROXINE, PHARMACY WAS CALLED AND INSTRUCTIONS RECEIVED TO DISCONTINUE LEVOTHYROXINE IV. DOCTOR NOTIFIED AND ORDER PLACED FOR MEDICATION DISCONTINUATION.
[2022-10-24] MEDS: MIDODRINE HCL (5MG) 5 MG TABLET PO SCH ×3 (09:02→18:53)
[2022-10-24] MEDS: LINAGLIPTIN 5 MG TABLET PO SCH (09:03)
[2022-10-24] MEDS: ALLOPURINOL 100 MG TABLET PO SCH (09:03)
[2022-10-24] MEDS: VIT B CMPLX 3/FA/VIT C/BIOTIN 1 TAB TABLET PO SCH (09:03)
[2022-10-24 12:00] VITALS: BP 115/45
--- NOTE | 2022-10-24 13:32 | NUR ---
RN NOTE MRI CHECK LIST ALONG WITH TELEPHONE CONSENT OBTAINED, PLACED ON PATIENTS CHART.
[2022-10-24 14:54] LABS: BASOPHILS # (AUTO) 0.1 K/uL (0.0-0.2); BASOPHILS % (AUTO) 0.9 % (0.0-2.0); EOSINOPHILS % (AUTO) 5.6 % (0.0-6.0); HEMATOCRIT 21 % (33-45); LYMPHOCYTES # (AUTO) 0.6 K/uL (0.8-4.8); LYMPHOCYTES % (AUTO) 8.1 % (20.0-44.0); MEAN CORPUSCULAR HGB CONC 32 g/dl (31.0-36.0); MEAN CORPUSCULAR VOLUME 105 fL (82-100); MONOCYTES # (AUTO) 0.9 K/uL (0.1-1.30); MONOCYTES % (AUTO) 11.7 % (2.0-12.0); NEUTROPHILS # (AUTO) 5.5 K/uL (1.8-8.9); NEUTROPHILS % (AUTO) 73.7 % (43.0-81.0); PLATELET COUNT (AUTO) 92 K/uL (150-450); WHITE BLOOD COUNT (AUTO) 7.5 K/uL (4.3-11.0)
[2022-10-24 15:08] LABS: CALCIUM, SERUM 8.1 mg/dL (8.5-10.1); CARBON DIOXIDE 18 mmol/L (21-32); CHLORIDE 110 mmol/L (98-107); CREATININE 1.7 mg/dL (0.6-1.3); GLUCOSE 135 mg/dL (74-106); POTASSIUM 3.7 mmol/L (3.5-5.1); SODIUM SERUM 137 mmol/L (136-145); UREA NITROGEN, BLOOD 25 mg/dL (7-18)
[2022-10-24 15:19] LABS: ALANINE AMINOTRANSFERASE 39 U/L (12-78); ALBUMIN 2.2 g/dL (3.4-5.0); ALKALINE PHOSPHATASE 114 U/L (46-116); ASPARTATE AMINOTRANSFERASE 53 U/L (15-37); BILIRUBIN,TOTAL 0.6 mg/dL (0.2-1.0)
[2022-10-24 15:22] LABS: THYROID STIMULATING HORMONE 9.066 uIU/mL (0.358-3.74)
[2022-10-24 15:44] LABS: RED BLOOD CELL COUNT(AUTO) 1.98 MIL/uL (4.0-5.2)
[2022-10-24 15:46] LABS: HEMOGLOBIN 6.6 g/dL (11.5-14.8)
--- NOTE | 2022-10-24 15:49 | NUR ---
RN NOTE RECEIVED CALL PHARMACY WITH [facility] FOR HEMOGLOBIN 6.6. DR HAMILTON NOTIFIED AND RECEIVED VERBAL ORDER FOR 1 UNIT PRBC
[2022-10-24 16:00] VITALS: BP 117/72
[2022-10-24 19:29] LABS: EOSINOPHILS % (MANUAL) 2 % (0-4); LYMPHOCYTES % (MANUAL) 17 % (16-48); MONOCYTES % (MANUAL) 6 % (0-11.0); NEUTROPHILS % (MANUAL) 75 (42-76)
--- NOTE | 2022-10-24 19:57 | NUR ---
RN CLOSING NOTE RECEIVED PATIENT RESTING IN BED, ALERT AND ORIENTED X2. ON ROOM AIR, BREATHING WELL AND UNEVEN, NO SHORTNESS OF BREATH OR DISCOMFORT NOTED. IV ACCESS ON LAC 20 DORIE, PATENT AND FLUSHING WELL, ON CONTINUOS 1/2 NS @90 CC/HR, INFUSING WELL. SAFETY MEASURES IMPLEMENTED, HEAD OF BED ELEVATED, BED IN LOWEST AND LOCKED POSITION. WILL ENDORSE TO KAIAWHINA KURA KAUPAPA MAORI NURSE FOR SHAMAR
--- NOTE | 2022-10-24 20:09 | NUR ---
RN OPENING NOTE RECEIVED PATIENT RESTING IN BED, ALERT AND ORIENTED X2. ON ROOM AIR, BREATHING WELL AND UNEVEN, NO SHORTNESS OF BREATH OR DISCOMFORT NOTED. IV ACCESS ON LAC 20 DORIE, PATENT AND FLUSHING WELL, ON CONTINUOS 1/2 NS @90 CC/HR, INFUSING WELL. SAFETY MEASURES IMPLEMENTED, HEAD OF BED ELEVATED, BED IN LOWEST AND LOCKED POSITION. WILL ENDORSE TO INDUSTRIAL TWISTING MACHINE OPERATOR NURSE FOR SHAMAR
[2022-10-24 20:41] VITALS: BP 131/42
[2022-10-24] MEDS: CEFTRIAXONE 1 G in IV D5W 50 ML IV SCH (22:23)
[2022-10-25] VITALS (11 sets, daily range): BP systolic 98–145; BP diastolic 42–99
[2022-10-25] MEDS: VANCOMYCIN 1.25 GM in IV D5W 250 ML IV SCH (02:45)
--- NOTE | 2022-10-25 06:31 | NUR ---
RN CLOSING NOTE PATIENT RESTING IN BED, ALERT AND ORIENTED X1-2 WIT CONFUSION. ON ROOM AIR, BREATHING WELL AND UNEVEN, NO SHORTNESS OF BREATH OR DISCOMFORT NOTED. IV ACCESS ON LAC 20 DORIE, PATENT AND FLUSHING WELL, ON CONTINUOS 1/2 NS @90 CC/HR, INFUSING WELL.S/P 1 UNIT OF BLOOD TODAY TOLERATED WELL. NO SIGNS OF ADVERSE REACTION NOTED PT REMAINS AFEBRILE. SAFETY MEASURES IMPLEMENTED, HEAD OF BED ELEVATED, BED IN LOWEST AND LOCKED POSITION. WILL ENDORSE TO DAY SHIFT NURSE FOR SHAMAR
[2022-10-25] MEDS: BLOOD SUGAR DIAGNOSTIC 1 EACH STRIP IN SCH ×4 (08:12→22:18)
[2022-10-25] MEDS: LEVOTHYROXINE SODIUM 175 MCG TABLET PO SCH (08:13)
[2022-10-25] MEDS: PANTOPRAZOLE 40 MG TABLET.DR PO SCH (08:14)
[2022-10-25] MEDS: LINAGLIPTIN 5 MG TABLET PO SCH (08:14)
[2022-10-25] MEDS: ALLOPURINOL 100 MG TABLET PO SCH (08:15)
[2022-10-25] MEDS: VIT B CMPLX 3/FA/VIT C/BIOTIN 1 TAB TABLET PO SCH (08:15)
[2022-10-25] MEDS: MIDODRINE HCL (5MG) 5 MG TABLET PO SCH ×3 (08:37→16:37)
[2022-10-25] MEDS ORDERED: LACTULOSE 10 G/15 ML UDC (PYXIS) PO PRN (10:30)
[2022-10-25 10:35] LABS: CARBON DIOXIDE 20 mmol/L (21-32); CHLORIDE 108 mmol/L (98-107); CREATININE 1.8 mg/dL (0.6-1.3); GLUCOSE 174 mg/dL (74-106); POTASSIUM 3.8 mmol/L (3.5-5.1); SODIUM SERUM 137 mmol/L (136-145); UREA NITROGEN, BLOOD 23 mg/dL (7-18)
[2022-10-25 10:48] LABS: BASOPHILS # (AUTO) 0.1 K/uL (0.0-0.2); BASOPHILS % (AUTO) 0.8 % (0.0-2.0); HEMATOCRIT 21 % (33-45); HEMOGLOBIN 7.2 g/dL (11.5-14.8); LYMPHOCYTES # (AUTO) 0.5 K/uL (0.8-4.8); LYMPHOCYTES % (AUTO) 6.5 % (20.0-44.0); MEAN CORPUSCULAR HGB CONC 34 g/dl (31.0-36.0); MEAN CORPUSCULAR VOLUME 97 fL (82-100); MONOCYTES # (AUTO) 0.9 K/uL (0.1-1.30); MONOCYTES % (AUTO) 12.8 % (2.0-12.0); NEUTROPHILS # (AUTO) 5.3 K/uL (1.8-8.9); NEUTROPHILS % (AUTO) 74.9 % (43.0-81.0); PLATELET COUNT (AUTO) 74 K/uL (150-450); WHITE BLOOD COUNT (AUTO) 7.1 K/uL (4.3-11.0)
[2022-10-25] MEDS: RIFAXIMIN 550 MG TABLET PO SCH ×2 (10:54→16:37)
[2022-10-25] MEDS: IV 1/2NS 1000 ML 1,000 ML IV PRN (13:42)
[2022-10-25 13:51] LABS: EOSINOPHILS % (MANUAL) 5 % (0-4); LYMPHOCYTES % (MANUAL) 5 % (16-48); MONOCYTES % (MANUAL) 13 % (0-11.0); NEUTROPHILS % (MANUAL) 77 (42-76)
--- NOTE | 2022-10-25 18:58 | NUR ---
CLOSING NOTE PATIENT A/OX2-3 AWAKE IN HIS BED WATCHING TV. ALL DUE MEDS GIVEN, ALL NEEDS PROVIDED, PATIENT KEPT CLEAN AND DRY. BOTH IV SITES ON RIGHT WRIST AND LAC RUNNING AND FLUSHING. ALL SAFETY PRECAUTIONS IMPLEMENTED. ALREADY INDORSED THE PATIENT TO THE METAL DRILL PRESS OPERATOR NURSE.
--- NOTE | 2022-10-25 19:35 | NUR ---
RN OPENING NOTES RECEIVED PATIENT IN BED, AWAKE, ALERT/ORIENTED X 1-2 WITH PERIODS OF CONFUSION. ON ROOM AIR AND PT TOLERATED WELL. BREATHING EVEN AND UNLABORED. IV ACCESS ON LAC#20 G INTACT AND PATENT. RUNNING 1/2 NS @90 CC/HR. NO C/O PAIN OR DISCOMFORT. NO ACUTE DISTRESS. ALL SAFETY MEASURES IN PLACE. HEAD OF BED ELEVATED, BED IN LOWEST POSITION AND LOCKED. PLACE CALL LIGHT WITH IN REACH. WILL CONTINUE TO MONITOR
[2022-10-25] MEDS: INSULIN REGULAR, HUMAN 100 UNIT/ML 3 ML VIAL SQ PRN (22:19)
--- NOTE | 2022-10-25 22:20 | NUR ---
RN NOTES: PT'S BLOOD SUAGR 114. NO COVERAGE NEEDED. NO S/S OF HYPER/HYPOGLYCEMIA. WILL CONTINUE TO MONITOR
[2022-10-25] MEDS: CEFTRIAXONE 1 G in IV D5W 50 ML IV SCH (22:42)
[2022-10-26] VITALS: BP 110/49
[2022-10-26 04:00] VITALS: BP 120/57
--- NOTE | 2022-10-26 06:31 | NUR ---
RN CLOSING NOTES PATIENT IN BED, AWAKE, ALERT/ORIENTED X 1-2 WITH PERIODS OF CONFUSION. ON ROOM AIR AND PT TOLERATED WELL. O2 SAT 97%. BREATHING EVEN AND UNLABORED. IV ACCESS ON LAC#20 G INTACT AND PATENT. RUNNING 1/2 NS @90 CC/HR. NO C/O PAIN OR DISCOMFORT. NO ACUTE DISTRESS. DUE MEDS GIVEN ORDERED. ALL SAFETY MEASURES IN PLACE. HEAD OF BED ELEVATED, BED IN LOWEST POSITION AND LOCKED. PLACE CALL LIGHT WITH IN REACH. WILL ENDORSE TO MORNING SHIFT NURSE.
[2022-10-26 08:00] VITALS: BP 133/60
[2022-10-26] MEDS: BLOOD SUGAR DIAGNOSTIC 1 EACH STRIP IN SCH ×3 (08:00→16:55)
[2022-10-26] MEDS: LEVOTHYROXINE SODIUM 175 MCG TABLET PO SCH (08:11)
[2022-10-26] MEDS: ALLOPURINOL 100 MG TABLET PO SCH (08:11)
[2022-10-26] MEDS: LINAGLIPTIN 5 MG TABLET PO SCH (08:11)
[2022-10-26] MEDS: RIFAXIMIN 550 MG TABLET PO SCH ×2 (08:11→16:54)
[2022-10-26] MEDS: VIT B CMPLX 3/FA/VIT C/BIOTIN 1 TAB TABLET PO SCH (08:11)
[2022-10-26] MEDS: MIDODRINE HCL (5MG) 5 MG TABLET PO SCH ×3 (08:12→16:54)
[2022-10-26] MEDS: PANTOPRAZOLE 40 MG TABLET.DR PO SCH (08:12)
[2022-10-26 12:00] VITALS: BP 118/57
[2022-10-26] MEDS: INSULIN REGULAR, HUMAN 100 UNIT/ML 3 ML VIAL SQ PRN (12:49)
[2022-10-26 16:00] VITALS: BP 132/65
[2022-10-26 16:54] VITALS: BP 131/68
--- NOTE | 2022-10-26 18:58 | NUR ---
I CALLED [facility] TO GIVE REPORT, THEY SAID WILL CALL US BACK BECAUSE THEY ARE CHANGING HSIFT. I WILL ENDORSE THE PATIENT TO THE RAP ARTIST NURSE TO GIVE REPORT TO THEM ONCE THEY CALLED. PATIENT IS SLEEPING IN BED WITHOUT SOB OR DISTRESS, READY TO BE TRANSFERRED. ALREADY SIGNED THE BELONGING AND DISCHARGE CONSENT FORMS.
--- NOTE | 2022-10-26 20:12 | NUR ---
noc rn note Patient does not have her Left hearing aid upon discharge, no notes can be found anywhere about taking her belongings home. Nuha the morning shift RN said probably took it home. Tried calling , Michael Dwyer #[phone] a no answer. I left a message. will try again later
--- NOTE | 2022-10-26 20:16 | NUR ---
DISCHARGE NOTE PATIENT WAS PICKED UP AROUND 1999 BY SAIMA JIMENEZ. ACCOMPANIED BY 2 EMT'S, PATIENT WAS ROLLED OUT VIA GURNEY. PATIENT HAS NO S/S OF APPARENT DISTRESS ON ROOM AIR. DENIES PAIN. PATIENT WAS ALERT AT THE TIME OF DISCHARGE. ID BAND DISCARDED. IV ACCESS REMOVED. PATIENT BELONGINGS IS ONLY SOCKS. REPORT GIVEN TO GALO HELM AT [facility], [place], WHERE PATIENT IS GOING. ALL PAPER WORKS SIGNED BY ACCORDING TO MORNING SHIFT RN. DISCHARGE PACKET GIVEN TO EMT. PATIENT IS IN STABLE CONDITION UPON DISCHARGE.
== END 2022-10-26 20:30 | DRG 441 ==
LOC: ER 18:01 → TELE1 23:22
PROVIDERS: ADMIT Internal Medicine; ATTEND Internal Medicine
PROC: 30233N1 Transfusion of Nonautologous Red Blood Cells into Peripheral Vein, Percutaneous Approach (ICD-10-PCS; principal; 2022-10-19)
PROC: 0DJ08ZZ Inspection of Upper Intestinal Tract, Via Natural or Artificial Opening Endoscopic (ICD-10-PCS; 2022-10-20)
DX: K76.82 Hepatic encephalopathy (principal); E43 Unspecified severe protein-calorie malnutrition; N17.0 Acute kidney failure with tubular necrosis; G92.8 Other toxic encephalopathy; N39.0 Urinary tract infection, site not specified; K76.6 Portal hypertension; R78.81 Bacteremia; R18.8 Other ascites; D68.59 Other primary thrombophilia; K92.2 Gastrointestinal hemorrhage, unspecified; K74.69 Other cirrhosis of liver; K31.89 Other diseases of stomach and duodenum; D63.8 Anemia in other chronic diseases classified elsewhere; Z20.822 Contact with and (suspected) exposure to COVID-19; K44.9 Diaphragmatic hernia without obstruction or gangrene; I48.91 Unspecified atrial fibrillation; Z98.890 Other specified postprocedural states; E03.9 Hypothyroidism, unspecified; T14.8XXA Other injury of unspecified body region, initial encounter; X58.XXXA Exposure to other specified factors, initial encounter; Y92.9 Unspecified place or not applicable; B96.20 Unspecified Escherichia coli [E. coli] as the cause of diseases classified elsewhere; D69.6 Thrombocytopenia, unspecified; E11.9 Type 2 diabetes mellitus without complications; E87.6 Hypokalemia; E88.09 Other disorders of plasma-protein metabolism, not elsewhere classified; Z68.33 Body mass index [BMI] 33.0-33.9, adult; E66.9 Obesity, unspecified; Z74.01 Bed confinement status; F03.90 Unspecified dementia, unspecified severity, without behavioral disturbance, psychotic disturbance, mood disturbance, and anxiety; B95.5 Unspecified streptococcus as the cause of diseases classified elsewhere; N18.9 Chronic kidney disease, unspecified
CPT/HCPCS: 36415; 36600; 43235; 70450-TC; 70551-TC; 71045-TC; 72125-TC; 76770-TC; 80048-TC; 80053-TC; 80076-TC; 80202-TC; 81001; 82140-TC; 82272-TC; 82607-TC; 82803-TC; 82962-TC; 83540-TC; 83605-TC; 83690-TC; 83735-TC; 84100-TC; 84443-TC; 84484-TC; 85025-TC; 85027-TC; 85730-TC; 86850-TC; 87040-TC; 87081-TC; 87086-TC; 92521; 92526; 97112-TC; 97530-TC; A4217; A4223; A6253; A6403; A9563; C9113; C9803; G0378; G0480; J0696; J1815; J2704; J3370; J3480; J3490; J7030; J7050; J7060; P9016